=== PATIENT | male | born 1995 | race Caucasian/White ===

== ENCOUNTER 2025-03-08 07:09 | Emergency (ER) | payer MEDICAID ==
[~2025-03-08] VITALS: Ht 190.5 cm; Wt 80.3 kg
--- NOTE | 2025-03-08 07:40 | ED.PDOC ---
Back pain HPI HPI Comments A 30 YEAR OLD MALE PRESENTS TO THE ED WITH COMPLAINT OF MIDDLE BACK PAIN THAT RADIATES TO LOWER BACK. PATIENT STATES HE HAS BEEN EXPERIENCING MIDDLE BACK PAIN THAT RADIATES DOWN TO HIS LOWER BACK THAT STARTED YESTERDAY. PATIENT NOTES HE HAS A HISTORY OF SCIATICA PAIN AND CHRONIC LOWER BACK PAIN. PATIENT REPORTS HIS PAIN IS WORSE WITH MOVEMENT. PATIENT DENIES INJURY TO THE AFFECTED AREA, SADDLE ANESTHESIA, URINARY INCONTINENCE, BOWEL INCONTINENCE, DYSURIA, HEMATURIA, FLANK PAIN, FEVER, CHILLS, SHORTNESS OF BREATH, CHEST PAIN, ABDOMINAL PAIN, NAUSEA, VOMITING, HEADACHE, OR OTHER COMPLAINTS. NO OTHER SYMPTOMS OR MODIFYING FACTORS AT THIS TIME. PATIENT IS ALERT, ORIENTED X 4, AND HAS STEADY GAIT. Chief Complaint: Back Pain Time Seen by MD: 07:30 Reviewed Notes: Nurses Notes, Medications, Allergies Allergies: Coded Allergies: Amoxicillin (Verified Allergy, Unknown, 03/08/25) Home Meds Active Scripts Hydrocodone-Acetaminophen (Hydrocodone Bitartrate/AC 5-325 mg) 1 Tab Tab, 1 TAB PO TID, #15 TAB Prov:CHUN TORRES 03/08/25 Prednisone (Prednisone) 20 Mg Tab, 40 MG PO DAILY, #20 TAB Prov:CHUN TORRES 03/08/25 Information Source: Patient Mode of Arrival: Ambulatory Timing: Days Duration: Since onset, Days Location of Back pain: (B) Lower back, (B) Thoracic Radiates to: Anterior: Other (LOWER BACK) Radiates to: Posterior: (R) Buttocks, (R) Thigh, Other (LOWER BACK) Radiates to: Medial: Other (LOWER BACK) Radiates to: Lateral: (R) Buttocks, (R) Thigh, Other (LOWER BACK) Severity: Moderate Prehospital treatment: None Quality: Aching, Cramping Onset: Spontaneous History of: Chronic Back Pain Modifying Factors: Movement Associated signs and symptoms: None Past Medical History Past Medical History (Other): FOREIGN BODY OF PELVIS SCIATICA Surgical History: Denies all surgeries Family History Family History: Reviewed,noncontributory to illness Social History Smoker: Non-Smoker Alcohol: Denies ETOH Use Drugs: Denies Drug Use Lives In: Home Constitutional: denies: chills, diaphoresis, fatigue, fever, malaise, sweats, weakness, others EENTM: denies: blurred vision, double vision, ear bleeding, ear discharge, ear drainage, ear pain, ear ringing, eye pain, eye redness, hearing loss, mouth pain, mouth swelling, nasal discharge, nose bleeding, nose congestion, nose pain, photophobia, tearing, throat pain, throat swelling, voice changes, others Respiratory: denies: cough, hemoptysis, orthopnea, SOB at rest, shortness of breath, SOB with excertion, stridor, wheezing, others Cardiovascular: denies: chest pain, dizzy spells, diaphoresis, Dyspnea on exertion, edema, irregular heart beat, left arm pain, lightheadedness, palpitations, PND, syncope, others Gastrointestinal: denies: abdomen distended, abdominal pain, blood streaked bowels, constipated, diarrhea, dysphagia, difficulty swallowing, hematemesis, melena, nausea, poor appetite, poor fluid intake, rectal bleeding, rectal pain, vomiting, others Genitourinary: denies: burning, dysuria, flank pain, frequency, hematuria, incontinence, penile discharge, penile sore, pain, testicle pain, testicle swelling, urgency, others Neurological: denies: dizziness, fainting, headache, left sided numbness, left sided weakness, numbness, paresthesia, pre-existing deficit, right sided numbness, right sided weakness, seizure, speech problems, tingling, tremors, weakness, others Musculoskeletal: reports: back pain (MIDDLE BACK PAIN THAT RADIATES TO LOWER BACK), muscle pain; denies: gout, joint pain, joint swelling, muscle stiffness, neck pain, others Integumetry: denies: bruises, change in color, change in hair/nails, dryness, laceration, lesions, lumps, rash, wounds, others Allergic/Immunocompromised: denies: Difficulty Healing, Frequent Infections, Hives, Itching, others Hematologic/Lymphatic: denies: anemia, blood clots, easy bleeding, easy bruising, swollen glands, others Endocrine: denies: excessive hunger, excessive sweating, excessive thirst, excessive urination, flushing, intolerance to cold, intolerance to heat, unexplained weight gain, unexplained weight loss, others Psychiatric: denies: anxiety, bipolar disorder, depression, hopeless, panic disorder, schizophrenia, sleepless, suicidal, others All Other Systems: Reviewed and Negative Physical Exam General Appearance: No Apparent Distress, Normal HEENT: Normal ENT Inspection, PERRL/EOMI, Pharynx Normal, TMs Normal Neck: Full Range of Motion, Non-Tender, Normal, Normal Inspection Respiratory: Chest Non-Tender, Lungs Clear, No Accessory Muscle Use, No Respiratory Distress, Normal Breath Sounds Cardiovascular: No Edema, No JVD, No Murmur, No Gallop, Normal Peripheral Pulses, Regular Rate/Rhythm Breast Exam: Deferred Gastrointestinal: No Organomegaly, Non Tender, No Pulsatile Mass, Normal Bowel Sounds, Soft Genitalia: Deferred Pelvic: Deferred Rectal: Deferred Extremities: No calf tenderness, Normal capillary refill, Normal inspection, Normal range of motion, Non-tender, No pedal edema Musculoskeletal : Location: Bilateral Extremity Location: Back, Other (NO REDNESS, SWELLING AND DVT SIGNS OF RIGHT LOWER LEG. ) Apperance: Tenderness (AND MUSCLE SPASM ON MIDDLE AND LOWER BACK, NO BONY TENDERNESS, SWELLING AND DEFORMITY. ) Neurologic: Alert, reinforcing steel worker wire mesh II-XII nml as Tested, No Motor Deficits, Normal Affect, Normal Mood, No Sensory Deficits Cerebellar Function: Normal Reflexes: Normal Skin: Dry, Normal Color, Warm Peripheral Pulses: 2+ carotid (R), 2+ carotid (L) Lymphatic: No Adenopathy Was a procedure done? Was a procedure done?: No Back Pain Differential Dx Differential Diagnosis: Musculoskeletal Pain Other Differential Diagnosis DDD, SCIATICA, LUMBAR RADICULOPATHY X-Ray, Labs, Meds, VS Vital Signs Date Time Temp Pulse Resp B/P (MAP) Pulse Ox O2 Delivery O2 Flow Rate FiO2 03/08/25 07:09 97.8 120 18 151/93 95 97.8 Current Medications Medications (Trade) Dose Ordered Sig/[place] Route Start Time Stop Time Status Last Admin Ketorolac Tromethamine (Toradol Injection) 60 mg ONCE ONCE IM 03/08/25 07:45 03/08/25 07:46 DC 03/08/25 07:43 CLINICAL HISTORY: LOW BACK PAIN TO RIGHT LOWER LEG TECHNIQUE: 2 views of the lumbar spine were obtained. COMPARISON: None FINDINGS: The alignment of the lumbar spine is normal. The vertebral body heights are maintained. No acute fracture or dislocation is seen. There is mild L5-S1 disc space loss. IMPRESSION: NO ACUTE RADIOGRAPHIC ABNORMALITY OF THE LUMBAR SPINE. ATED BY: JOHN JENNINGS MD DICTATED DATE/TIME: 03/08/25813 SIGNED BY: JOHN JENNINGS MD SIGNED DATE/TIME: 03/08/25813 CC: INDICATION: PAIN, NO INJURY TECHNIQUE: 2 views of the thoracic spine were obtained. COMPARISON: None FINDINGS: There is no evidence of fracture, subluxation and/or dislocation. The alignment is anatomical. The paravertebral soft tissues were unremarkable. IMPRESSION: 1. Of the visualized spine, there is no evidence for fracture or subluxation. ATED BY: ISAAC WILD MD DICTATED DATE/TIME: 03/08/25825 SIGNED BY: ISAAC WILD MD SIGNED DATE/TIME: 03/08/25825 CC: X-Ray, Labs, Meds, VS Comment EXTERNAL MEDICAL RECORDS REVIEWED: [NONE] INDEPENDENT HISTORIANS: [NONE] SOCIAL DETERMINANTS OF HEALTH: [NONE] LABS ORDERED: NONE REVIEWED AND INTERPRETED RESULTS: NONE IMAGING ORDERED: XR T-SPINE, XR L-SPINE TREATMENTS ORDERED: TORADOL 60 MG IM PROCEDURES PERFORMED: NONE CRITICAL CARE TIME: NONE I HAVE DISCUSSED THE PATIENT WITH THE ATTENDING PHYSICIAN DR. RACHEL AND HE AGREES WITH THE PATIENT'S PLAN OF CARE AND DISPOSITION. BASED ON HISTORY OF PRESENT ILLNESS, AND PHYSICAL EXAM, PATIENT WILL BE DISCHARGED HOME. DISCUSSED PLAN FOR DISCHARGE HOME WITH RX [NORCO 5/325 MG]. MEDICATION WARNINGS GIVEN. SHARED DECISION MAKING: DISCUSSED WITH PATIENT THAT THEIR WORKUP WAS NORMAL. PATIENT INSTRUCTED TO FOLLOW UP WITH PRIMARY CARE PROVIDER IN 1-2 DAYS FOR RE- EVALUATION OF SYMPTOMS. PATIENT VERBALIZES UNDERSTANDING TO RETURN TO ED FOR NEW OR WORSENING SYMPTOMS OR IF FOLLOW UP WITH PCP CANNOT BE OBTAINED. PATIENT FEELS COMFORTABLE GOING HOME AT THIS TIME. ALL QUESTIONS ADDRESSED AT TIME OF DISCHARGE. Images Reviewed?: Images reviewed and evaluated by me Time of 1ST Reevaluation: 08:44 Reevaluation 1ST: Improved Patient Education/Counseling: Diagnosis, Treatment, Need For Follow Up Family Education/Counseling: Diagnosis, Treatment, Need For Follow Up Medical Screening: No EMC Exist At This Time SEPSIS Sepsis Screen Physician Orders Spine Thoracic 2view (03/08/25 07:35) Lumbar Spine 3 View (03/08/25 07:35) Vital Signs Date Time Temp Pulse Resp B/P (MAP) Pulse Ox O2 Delivery O2 Flow Rate FiO2 03/08/25 07:09 97.8 120 18 151/93 95 97.8 Medications Medications Dose Ordered Sig/[place] Route Start Time Stop Time Status Last Admin Dose Admin Ketorolac Tromethamine 60 mg ONCE ONCE IM 03/08/25 07:45 03/08/25 07:46 DC 03/08/25 07:43 Departure 1 Departure Time of Disposition: 08:44 Impression: Primary Impression: Strain of mid-back Qualified Codes: S29.012A - Strain of muscle and tendon of back wall of thorax, initial encounter Additional Impressions: DDD (degenerative disc disease), lumbar Qualified Codes: M51.362 - Other intervertebral disc degeneration, lumbar region with discogenic back pain and lower extremity pain Lumbar radiculopathy Acute exacerbation of chronic low back pain Disposition: HOME / SELF CARE / HOMELESS Condition: Stable Additional Instructions: FOLLOW-UP WITH PCP IN 1 TO 2 DAYS. TAKE MEDICATIONS PRESCRIBED. RETURN TO ED FOR ANY NEW OR WORSENING SYMPTOMS. e-Prescriptions Hydrocodone-Acetaminophen (Hydrocodone Bitartrate/AC 5-325 mg) 1 Tab Tab 1 TAB PO TID, #15 TAB Prov: CHUN TORRES 03/08/25 Prednisone (Prednisone) 20 Mg Tab 40 MG PO DAILY, #20 TAB Prov: CHUN TORRES 03/08/25 Discharged With: Self, Relative Critical Care Note Critical Care Time?: No Stability Stability form required: No I personally scribed for CHUN TORRES ([email or web address]) on 03/08/25 at 07:40. Electronically submitted by Sujit Arambula ([email or web address]). I personally scribed for CHUN TORRES ([email or web address]) on 03/08/25 at 08:21. Electronically submitted by Sujit Arambula ([email or web address]). I personally scribed for CHUN TORRES ([email or web address]) on 03/08/25 at 08:36. Electronically submitted by Sujit Arambula ([email or web address]). I personally scribed for CHUN TORRES ([email or web address]) on 03/08/25 at 08:42. Electronically submitted by Sujit Arambula ([email or web address]). CHUN TORRES Mar 08, 2025 07:40
[2025-03-08] MEDS: KETOROLAC TROMETH 60MG/2ML VIAL IM ONE (07:43)
--- NOTE | 2025-03-08 08:17 | DVH ---
CLINICAL HISTORY: LOW BACK PAIN TO RIGHT LOWER LEG TECHNIQUE: 2 views of the lumbar spine were obtained. COMPARISON: None FINDINGS: The alignment of the lumbar spine is normal. The vertebral body heights are maintained. No acute fracture or dislocation is seen. There is mild L5-S1 disc space loss. IMPRESSION: NO ACUTE RADIOGRAPHIC ABNORMALITY OF THE LUMBAR SPINE.
--- NOTE | 2025-03-08 08:28 | DVH ---
INDICATION: PAIN, NO INJURY TECHNIQUE: 2 views of the thoracic spine were obtained. COMPARISON: None FINDINGS: There is no evidence of fracture, subluxation and/or dislocation. The alignment is anatomical. The paravertebral soft tissues were unremarkable. IMPRESSION: 1. Of the visualized spine, there is no evidence for fracture or subluxation.
[2025-03-08] MEDS ORDERED: PRED20TA2 PO (08:42)
[2025-03-08] MEDS ORDERED: HYDR-4902 PO (08:42)
[2025-03-08 08:49] VITALS: BP 122/78; PULSE 106; RESP 17; TEMP 99.9; O2SAT 95
== END 2025-03-08 08:54 | disposition home or self-care (01) ==
LOC: ER 07:09 → EEVIPCON 07:09 → ER 08:49
DX: S29.012A Strain of muscle and tendon of back wall of thorax, initial encounter (principal); M51.16 Intervertebral disc disorders with radiculopathy, lumbar region; G89.29 Other chronic pain; Z79.899 Other long term (current) drug therapy; Z88.0 Allergy status to penicillin; Z79.891 Long term (current) use of opiate analgesic; Z79.52 Long term (current) use of systemic steroids; X58.XXXA Exposure to other specified factors, initial encounter; Y93.89 Activity, other specified; Y92.89 Other specified places as the place of occurrence of the external cause; Y99.8 Other external cause status
CPT/HCPCS: 72070; 72100; 96372; 99284; J1885

== ENCOUNTER 2025-04-10 08:53 | Inpatient (IN) | payer MEDICAID ==
[~2025-04-10] VITALS: Ht 190.5 cm; Wt 82.0 kg
[~2025-04-10 08:53] MED LIST: HYDR-4902 PO; PRED20TA2 PO
[2025-04-10] MEDS: HYDROcodone-ACET 5/325MG TAB PO ONE (09:30)
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
--- NOTE | 2025-04-10 10:02 | DVH ---
INDICATION: c spine pain TECHNIQUE: 3 views of the cervical spine were obtained. COMPARISON: None FINDINGS: The cervical spine is visualized from C1-C7. There is loss of the normal cervical lordosis which can be positional. No fractures or subluxations are identified. Alignment appears unremarkable. Prevertebral soft tissues are within normal limits. IMPRESSION: No acute fracture or subluxation
[2025-04-10 10:09] LABS: Hematocrit 46.5 % (41.0-53.0); Hemoglobin 15.8 g/dL (13.5-17.5); Mean Corpuscular Hemoglobin 30.8 pg (28.0-32.0); Mean Corpuscular Volume 90.5 fL (80.0-100.0); Nucleated Red Blood Cells % 0.2 %
[2025-04-10 10:17] LABS: Anion Gap 9 (5-15); Carbon Dioxide 30 mmol/L (20-31); Chloride 106 mmol/L (98-107); Potassium 3.6 mmol/L (3.5-5.1); Sodium 145 mmol/L (136-145)
[2025-04-10 10:18] LABS: Calcium 9.4 mg/dL (8.7-10.4)
[2025-04-10 10:23] LABS: BUN/Creatinine Ratio 6.6 (10.0-20.0)
[2025-04-10 10:33] LABS: Blood Urea Nitrogen 7 mg/dL (9-23); Glucose 109 mg/dL (74-106)
[2025-04-10 12:23] LABS: Urine Protein, UAD Negative (Negative)
[2025-04-10 12:27] LABS: Amphetamine Screen, Urine Neg (NEGATIVE); Barbiturate Scree,Urine Neg (NEGATIVE); Benzodiazephine Screen, Urine Neg (NEGATIVE); Cannabinoid Screen, Urine Neg (NEGATIVE); Cocaine Screen, Urine Neg (NEGATIVE); Opiate Scree,Urine Neg (NEGATIVE); Phencyclidine Screen, Urine Neg (NEGATIVE)
[2025-04-10] MEDS ORDERED: LIDO5DIS21 TOP (13:01)
[2025-04-10] MEDS ORDERED: NAPR-957 PO (13:01)
[2025-04-10] MEDS ORDERED: METH-1181 PO (13:01)
--- NOTE | 2025-04-10 14:08 | DVH ---
CHEST RADIOGRAPH INDICATION: R/o pathology TECHNIQUE: Single frontal view of the chest was obtained COMPARISON: None FINDINGS: Lines and Tubes: None Lungs: No focal consolidation. Pleura: No effusion. No pneumothorax. Cardiomediastinal contours: Unremarkable Bones: No acute osseous abnormality. IMPRESSION: 1. No acute cardiopulmonary disease.
[2025-04-10] MEDS ORDERED: NITROGLYCERIN 0.4 MG SL TAB SL PRN (16:30)
[2025-04-10] MEDS ORDERED: MORPHINE SULFATE INJ 2 MG/ml SYRG IV PRN (16:30)
[2025-04-10] MEDS ORDERED: ACETAMINOPHEN 325 MG TAB PO PRN (16:30)
[2025-04-10] MEDS ORDERED: DOCUSATE SOD 100 MG CAP PO PRN (16:30)
[2025-04-10] MEDS ORDERED: ONDANSETRON HCL 4 MG/2 ML VIAL IV PRN (16:30)
--- NOTE | 2025-04-10 16:33 | DVHHP2 ---
History of Present Illness Reason for Visit: Neck pain History of Present Illness Conrad Montaño is a 30-year-old male transitioning to a female, who came to the hospital for neck pain. Patient initial came in complaining of neck pain, and was found to be tachycardic. ER requesting admission for cardiac work up. 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 Patient also made statements about being fearful of a catastrophic event such as loss of blood flow to his brain if he goes home. States previous imaging shows severe degenerative changes in lower lumbar region, Imaging completed here does not show that. Patient is difficult to keep on track with the conversation. When I did my assessment, he made no mention of neck or back pain. Only spoke of his heart problems because the ER told him he was being admitted due to his tachycardia. He states he was told in 2020 and 2022 that he has valve problems, but does not know what valves. Then states he has atrial enlargement and it traveled from the right to the left. Psych: Anxiety, Depression Musculoskeletal: Other (DDD) Past Surgical History: None Smoke: No ALCOHOL: none Drugs: None Lives: with Family Domestic Violence: Neg Review of Systems Constitutional: No: Fever, Chills, Sweats, Weakness, Malaise, Other Eyes: No: Pain, Vision change, Conjunctivae inflammation, Eyelid inflammation, Other, Redness ENT: No: Ear pain, Ear discharge, Nose pain, Nose discharge, Nose congestion, Mouth pain, Mouth swelling, Throat pain, Throat swelling, Other Respiratory: No: Cough, Dry, Shortness of breath, SOB with excertion, Wheezing, Hemoptysis, Pleuritic Pain, Sputum, Wheezing, Other Cardiovascular: Palpitations; No: Chest Pain, Orthopnea, Paroxysmal Noc. Dyspnea, Edema, Lt Headedness, Other Gastrointestinal: No: Nausea, Vomiting, Abdominal Pain, Diarrhea, Constipation, Melena, Hematochezia, Other Genitourinary: No Dysuria, No Frequency, No Incontinence, No Hematuria, No Retention, No Other Musculoskeletal: neck pain, back pain; No: other, shoulder pain, arm pain, hand pain, leg pain, foot pain Skin: No: Rash, Lesions, Jaundice, Bruising, Other Neurological: No: Weakness, Numbness, Incoordination, Change in speech, Conf usion, Seizures, Other Allergies: Coded Allergies: Amoxicillin (Verified Allergy, Unknown, 03/08/25) Exam Vital Signs Vital Signs Date Time Temp Pulse Resp B/P (MAP) Pulse Ox O2 Delivery O2 Flow Rate FiO2 04/10/25 15:41 106 04/10/25 14:56 98.3 17 105/58 (74) 96 98.3 General Appearance: Alert, Oriented X3, Cooperative, No acute distress HEENT: Atraumatic, PERRLA, Mucous membr. moist/pink Respiratory: Clear to auscultation, Normal air movement Cardiovascular: Regular rate, Normal S1, Normal S2, No murmurs Abdominal: Normal bowel sounds, Soft, No tenderness Extremities: No clubbing, No cyanosis, No edema, Normal pulses, No tenderness/swelling Skin: No rashes, No breakdown, No significant lesion Neuro: Normal gait, Normal speech, Strength at 5/5 X4 ext, Normal tone Psych/Mental Status: Mental status NL, Mood NL Labs/Xrays Labs Test 04/10/25 09:51 04/10/25 09:19 Range/Units White Blood Count 5.0 4.4-10.8 10^3/uL Red Blood Count 5.14 4.5-5.90 10^6/uL Hemoglobin 15.8 13.5-17.5 g/dL Hematocrit 46.5 41.0-53.0 % Mean Corpuscular Volume 90.5 80.0-100.0 fL Mean Corpuscular Hemoglobin 30.8 28.0-32.0 pg Mean Corpuscular Hemoglobin Concent 34.0 32.0-36.0 g/dL Red Cell Distribution Width 12.9 11.8-14.3 % Platelet Count 294 140-450 10^3/uL Mean Platelet Volume 8.2 6.9-10.8 fL Neutrophils (%) (Auto) 46.4 37.0-80.0 % Lymphocytes (%) (Auto) 39.6 10.0-50.0 % Monocytes (%) (Auto) 9.8 0.0-12.0 % Eosinophils (%) (Auto) 3.2 0.0-7.0 % Basophils (%) (Auto) 1.0 0.0-2.0 % Neutrophils # (Auto) 2.3 1.6-8.6 10 ^3/uL Lymphocytes # (Auto) 2.0 0.4-5.4 10 ^3/uL Monocytes # (Auto) 0.5 0-1.3 10 ^3/uL Eosinophils # (Auto) 0.2 0-0.8 10 ^3/uL Basophils # (Auto) 0.1 0-0.2 10 ^3/uL Nucleated Red Blood Cells 0.2 % Sodium Level 145 136-145 mmol/L Potassium Level 3.6 3.5-5.1 mmol/L Chloride Level 106 98-107 mmol/L Carbon Dioxide Level 30 20-31 mmol/L Anion Gap 9 5-15 Blood Urea Nitrogen 7 L 9-23 mg/dL Creatinine 1.06 0.700-1.30 mg/dL Glomerular Filtration Rate Calc 97 >90 mL/min BUN/Creatinine Ratio 6.6 L 10.0-20.0 Serum Glucose 109 H 74-106 mg/dL Calcium Level 9.4 8.7-10.4 mg/dL Magnesium Level 2.0 1.6-2.6 mg/dL Troponin I High Sensitivity < 3 L </=54 ng/L Thyroid Stimulating Hormone (TSH) 2.00 0.55-4.78 uIU/mL Urine Color Yellow Yellow Urine Clarity Clear Clear Urine pH 6.0 5.0-9.0 Urine Specific [place] 1.018 1.001-1.035 Urine Protein Negative Negative Urine Ketones Negative Negative Urine Blood Negative Negative /uL Urine Nitrite Negative Negative Urine Bilirubin Negative Negative Urine Urobilinogen 2 H Negative mg/dL Urine Leukocyte Esterase Negative Negative /uL Urine RBC 3 0 - 3 /hpf Urine Microscopic WBC 1 0-3 /HPF Urine Squamous Epithelial Cells None seen <5 /hpf Urine Bacteria None seen None Seen /hpf Urine Glucose Normal Normal mg/dL Urine Opiates Screen Neg NEGATIVE Urine Fentanyl Screen Neg NEGATIVE Urine Barbiturates Screen Neg NEGATIVE Urine Phencyclidine Screen Neg NEGATIVE Urine Amphetamines Screen Neg NEGATIVE Urine Benzodiazepines Screen Neg NEGATIVE Urine Cocaine Screen Neg NEGATIVE Urine Cannabinoids Screen Neg NEGATIVE TECHNIQUE: 3 views of the cervical spine were obtained. FINDINGS: The cervical spine is visualized from C1-C7. There is loss of the normal cervical lordosis which can be positional. No fractures or subluxations are identified. Alignment appears unremarkable. Prevertebral soft tissues are within normal limits. IMPRESSION: No acute fracture or subluxation CHEST RADIOGRAPH FINDINGS: Lines and Tubes: None Lungs: No focal consolidation. Pleura: No effusion. No pneumothorax. Cardiomediastinal contours: Unremarkable Bones: No acute osseous abnormality. IMPRESSION: 1. No acute cardiopulmonary disease. SEPSIS Sepsis Screen Date sepsis recognized/suspect: Apr 10, 2025 Time Sepsis recognized/suspect: 09 Recent Procedure: No On Antibiotic Therapy: No Respiratory Rate >20: No Heart Rate >90: Yes Temp<36 C (96.8 F) or >38.3 C: No SBP <90 or MAP <65 mmHG: No New Acute Mental Status Change: No Is the patient on CPAP, BIPAP,: No Physician Orders Cervical Spine 3v (04/10/25 09:24) * Business Control Manager Consult (04/10/25 ) Chest Xray 1 View (04/10/25 13:36) Electrocardigram (04/10/25 13:36) Vital Signs Date Time Temp Pulse Resp B/P (MAP) Pulse Ox O2 Delivery O2 Flow Rate FiO2 04/10/25 15:41 106 04/10/25 14:56 98.3 106 17 105/58 (74) 96 98.3 04/10/25 09:31 125 16 94 04/10/25 09:31 97.7 125 16 125/80 (95) 94 97.7 04/10/25 09:07 98.1 129 18 138/115 98 98.1 Laboratory Tests Test 04/10/25 09:51 White Blood Count 5.0 10^3/uL (4.4-10.8) Medications Medications Dose Ordered Sig/[place] Route Start Time Stop Time Status Last Admin Dose Admin Acetaminophen/ Hydrocodone Bitart 1 tab ONCE ONCE PO 04/10/25 09:30 04/10/25 09:31 DC 04/10/25 09:30 1 TAB Assessment/Plan Assessment/Plan Assessment: Tachycardia, Degenerative disc disease, Anxiety, Depression, Plan: Admit to Tele, Cardiology consult, Psychiatry consult, ECHO, Lipid panel, TSH, A1c, Continuous telemetry monitoring, Home medication reconciled, Plan discussed with: Patient Date of Service: Apr 10, 2025 Billing Provider: JOSE WATT Common Visit Codes: 80579-BJSWBAL INP/OBS CARE (MOD) JOSE WATT Apr 10, 2025 16:33
--- NOTE | 2025-04-10 16:37 | ECG ---
[facility] Test Date: 2025-04-10 Test Time: 15:41:15 Pat Name: JOSLYN PARRA Department: ED Room: [address] [place] [address] A Gender: M Aviation Electrician: adelita : 1995 Requested By: RUBIO BAIG Order Number: [id number] Reading MD: Toño Stovall Measurements Intervals [place] Rate: 106 P: 78 HI: 198 QRS: 82 QRSD: 84 T: 51 QT: 316 QTc: 420 Interpretive Statements Sinus tachycardia Borderline prolonged HI interval Right atrial enlargement Electronically Signed On 04-13-2025 10:30:08 PST by Toño Stovall Please click the below link to view image of tracing.
[2025-04-10] MEDS: HYDROcodone-ACET 5/325MG TAB PO PRN (18:15)
[2025-04-10 20:47] VITALS: BP 117/79; PULSE 83; RESP 16; TEMP 97.8; O2SAT 83
[2025-04-10] MEDS ORDERED: DULO1CAP4 PO (20:59)
[2025-04-10] MEDS: SODIUM CHLOR 0.9% PF (SALINE LOCK) 10ML VIAL/SYR IV SCH (21:26)
[2025-04-11 05:00] VITALS: BP 98/71; PULSE 78; RESP 16; TEMP 97.9; O2SAT 97
[2025-04-11 05:34] LABS: Hematocrit 43.9 % (41.0-53.0); Hemoglobin 15.1 g/dL (13.5-17.5); Mean Corpuscular Hemoglobin 31.0 pg (28.0-32.0); Mean Corpuscular Volume 89.8 fL (80.0-100.0); Nucleated Red Blood Cells % 0.0 %
[2025-04-11 06:02] LABS: Alanine Aminotransferase 13 U/L (7-40); Albumin 4.2 g/dL (3.2-4.8); Alkaline Phosphatase 86 U/L (46-116); Anion Gap 8 (5-15); BUN/Creatinine Ratio 11.2 (10.0-20.0); Blood Urea Nitrogen 10 mg/dL (9-23); Calcium 9.5 mg/dL (8.7-10.4); Carbon Dioxide 30 mmol/L (20-31); Chloride 108 mmol/L (98-107); Glucose 84 mg/dL (74-106); Potassium 4.0 mmol/L (3.5-5.1); Sodium 146 mmol/L (136-145); Total Protein 6.9 g/dL (5.7-8.2)
[2025-04-11 06:03] LABS: Bilirubin, Total 0.5 mg/dL (0.2-1.0)
[2025-04-11 08:00] VITALS: PULSE 88
[2025-04-11 08:52] VITALS: BP 103/75; PULSE 88; RESP 18; TEMP 99; O2SAT 98
[2025-04-11] MEDS ORDERED: ERGOCALCIFEROL 50,000 UNIT(1.25MG) CAP PO SCH (11:15)
[2025-04-11] MEDS ORDERED: BACL10TA PO (13:54)
--- NOTE | 2025-04-11 15:29 | DVHDSRES ---
Discharge Summary Date of Admission Resident Creating Document: AINSLEY REILLY RESIDENT Apr 10, 2025 at 16:29 Date of Discharge: Apr 11, 2025 Admitting Diagnosis Intractable neck pain and tachycardia Labs/Diagnostic Data: Laboratory Results Test 04/11/25 05:02 04/10/25 09:51 04/10/25 09:19 White Blood Count 5.1 10^3/uL (4.4-10.8) Red Blood Count 4.88 10^6/uL (4.5-5.90) Hemoglobin 15.1 g/dL (13.5-17.5) Hematocrit 43.9 % (41.0-53.0) Mean Corpuscular Volume 89.8 fL (80.0-100.0) Mean Corpuscular Hemoglobin 31.0 pg (28.0-32.0) Mean Corpuscular Hemoglobin Concent 34.5 g/dL (32.0-36.0) Red Cell Distribution Width 13.3 % (11.8-14.3) Platelet Count 267 10^3/uL (140-450) Mean Platelet Volume 8.0 fL (6.9-10.8) Neutrophils (%) (Auto) 49.5 % (37.0-80.0) Lymphocytes (%) (Auto) 35.3 % (10.0-50.0) Monocytes (%) (Auto) 11.7 % (0.0-12.0) Eosinophils (%) (Auto) 2.6 % (0.0-7.0) Basophils (%) (Auto) 0.9 % (0.0-2.0) Neutrophils # (Auto) 2.5 10 ^3/uL (1.6-8.6) Lymphocytes # (Auto) 1.8 10 ^3/uL (0.4-5.4) Monocytes # (Auto) 0.6 10 ^3/uL (0-1.3) Eosinophils # (Auto) 0.1 10 ^3/uL (0-0.8) Basophils # (Auto) 0 10 ^3/uL (0-0.2) Nucleated Red Blood Cells 0.0 % Sodium Level 146 mmol/L (136-145) Potassium Level 4.0 mmol/L (3.5-5.1) Chloride Level 108 mmol/L (98-107) Carbon Dioxide Level 30 mmol/L (20-31) Anion Gap 8 (5-15) Blood Urea Nitrogen 10 mg/dL (9-23) Creatinine 0.89 mg/dL (0.700-1.30) Glomerular Filtration Rate Calc 118 mL/min (>90) BUN/Creatinine Ratio 11.2 (10.0-20.0) Serum Glucose 84 mg/dL (74-106) Hemoglobin A1c 4.9 % A1C (<5.7) Calcium Level 9.5 mg/dL (8.7-10.4) Total Bilirubin 0.5 mg/dL (0.2-1.0) Aspartate Amino Transferase (AST) 15 U/L (13-40) Alanine Aminotransferase (ALT) 13 U/L (7-40) Alkaline Phosphatase 86 U/L (46-116) Total Protein 6.9 g/dL (5.7-8.2) Albumin 4.2 g/dL (3.2-4.8) Vitamin B12 Level 396 pg/mL (211-911) Vitamin D 25-Hydroxy 27.4 ng/mL (30.0-100) Folic Acid 6.90 ng/mL (>5.38) Magnesium Level 2.0 mg/dL (1.6-2.6) Troponin I High Sensitivity < 3 ng/L (</=54) Thyroid Stimulating Hormone (TSH) 2.00 uIU/mL (0.55-4.78) Urine Color Yellow (Yellow) Urine Clarity Clear (Clear) Urine pH 6.0 (5.0-9.0) Urine Specific [place] 1.018 (1.001-1.035) Urine Protein Negative (Negative) Urine Ketones Negative (Negative) Urine Blood Negative /uL (Negative) Urine Nitrite Negative (Negative) Urine Bilirubin Negative (Negative) Urine Urobilinogen 2 mg/dL (Negative) Urine Leukocyte Esterase Negative /uL (Negative) Urine RBC 3 /hpf (0 - 3) Urine Microscopic WBC 1 /HPF (0-3) Urine Squamous Epithelial Cells None seen /hpf (<5) Urine Bacteria None seen /hpf (None Seen) Urine Glucose Normal mg/dL (Normal) Urine Opiates Screen Neg (NEGATIVE) Urine Fentanyl Screen Neg (NEGATIVE) Urine Barbiturates Screen Neg (NEGATIVE) Urine Phencyclidine Screen Neg (NEGATIVE) Urine Amphetamines Screen Neg (NEGATIVE) Urine Benzodiazepines Screen Neg (NEGATIVE) Urine Cocaine Screen Neg (NEGATIVE) Urine Cannabinoids Screen Neg (NEGATIVE) Other Laboratory Tests 04/11/25 05:02 Brief Hx & Hospital Course: Joslyn Montaño is a 30-year-old male transitioning to a female, who came to the hospital for neck pain. Patient initial came in complaining of neck pain, and was found to be tachycardic. ER requesting admission for cardiac work up. 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 Patient also made statements about being fearful of a catastrophic event such as loss of blood flow to his brain if he goes home. States previous imaging shows severe degenerative changes in lower lumbar region, Imaging completed here does not show that. Patient is difficult to keep on track with the conversation. When I did my assessment, he made no mention of neck or back pain. Only spoke of his heart problems because the ER told him he was being admitted due to his tachycardia. He states he was told in 2020 and 2022 that he has valve problems, but does not know what valves. Then states he has atrial enlargement and it traveled from the right to the left. Hospital course-during hospital course patient is was treated conservatively. Patient reported regarding her 6 trafficking she already reported with the police and there has been vegetation going on. Patient was advised to follow up with the PCP if there any device in her body on not/also talked to police regarding what med she should be taking. X-ray cervical spine no acute fracture, patient is being discharged with the baclofen b.i.d. PRN. Patient was advised to follow up at [facility] for further evaluation and care. Patient was hemodynamically stable on discharge. All questions answered. Assessment Neck pain likely due to musculoskeletal Anxiety Panic attack Delusional disorder Suspected schizoaffective disorder without AHVH with the acute psychosis Denied any SI or HI Plan Baclofen as prescribed Was advised to follow up with the PCP for further evaluation and care/police Department for consult regarding device in her body Patient was also advised to follow up at [facility] for further evaluation care of suspected schizoaffective disorder/anxiety Follow up at [facility] Operations or Procedures [address] [address] Ph: [phone] DIAGNOSTIC IMAGING Diagnostic Imaging Report : [id number] Signed PATIENT: JOSLYN MONTAÑO ACCT: [id number] UNIT: [id number] : 1995 LOC: ER ROOM / BED: / AGE / SEX: 30 / M ADM STATUS: REG ER SERVICE [id number] ORDERING PHYSICIAN: RUBIO BAIG NP PROCEDURE(s): CERV2 - CERVICAL SPINE 3V REASON: c spine pain ORDER NUMBER(s): [id number], ACCESSION NUMBER(s): [id number] INDICATION: c spine pain TECHNIQUE: 3 views of the cervical spine were obtained. COMPARISON: None FINDINGS: The cervical spine is visualized from C1-C7. There is loss of the normal cervical lordosis which can be positional. No fractures or subluxations are identified. Alignment appears unremarkable. Prevertebral soft tissues are within normal limits. IMPRESSION: No acute fracture or subluxation ATED BY: ISAAC WILD MD DICTATED DATE/TIME: 04/10/25958 SIGNED BY: ISAAC WILD MD SIGNED DATE/TIME: 04/10/25958 CC: [place] [address] Ph: [phone] DIAGNOSTIC IMAGING Diagnostic Imaging Report : [id number] Signed PATIENT: JOSLYN MONTAÑO ACCT: [id number] UNIT: [id number] : 1995 LOC: ER ROOM / BED: / AGE / SEX: 30 / M ADM STATUS: REG ER SERVICE 1336 ORDERING PHYSICIAN: RUBIO BAIG [employer]URAL STEEL IRONWORKER PROCEDURE(s): CXR1 - CHEST XRAY 1 VIEW REASON: R/o pathology ORDER NUMBER(s): [id number], ACCESSION NUMBER(s): [id number] CHEST RADIOGRAPH INDICATION: R/o pathology TECHNIQUE: Single frontal view of the chest was obtained COMPARISON: None FINDINGS: Lines and Tubes: None Lungs: No focal consolidation. Pleura: No effusion. No pneumothorax. Cardiomediastinal contours: Unremarkable Bones: No acute osseous abnormality. IMPRESSION: 1. No acute cardiopulmonary disease. ATED BY: PARMJIT NAPIER Jr., DO DICTATED DATE/TIME: 04/10/251404 SIGNED BY: PARMJIT NAPIER Jr., SIGNED DATE/TIME: 04/10/25 140 CC: Condition at Discharge: Stable Final Diagnosis/Problems List Suspected schizoaffective disorder without AHVH without acute psychosis Ruled out SI or HI Neck pain likely due to musculoskeletal Sinus tachh d/t Anxiety Panic attack Delusional disorder Vit D Def Discharge Disposition: Home Discharge Instruct/Medications Diet: Regular Activity: No Restrictions, As Tolerated Follow Up/Referral: [facility] as provide information PCP Medications: As Per EMR Scheduled Duloxetine HCl (Duloxetine HCl), 1 CAP PO BID, (Reported) Hydrocodone-Acetaminophen (Hydrocodone Bitartrate/AC 5-325 mg), 1 TAB PO TID Scheduled PRN Baclofen (Baclofen), 10 MG PO BIDPRN PRN Discharge Statement: "Patient was advised to return to the ER or call 911 if any headaches, dizziness, shortness of breath, chest pain, abdominal pain, bleeding, fevers, or worsening of medical condition. Patient was counseled about treatment plan, medications, possible side effects, patientverbalized understanding. All questions were answered to the best of my ability. This discharge took greater then 30 minutes in planning, reviewing documentation, counseling the patient, and discussing with other team members." ASSESSMENT ASSESSMENT Assessment Neck pain likely due to musculoskeletal Anxiety Panic attack Delusional disorder Suspected schizoaffective disorder without AHVH with the acute psychosis Denied any SI or HI Visit Coding STANDARD RES Billing Provider: YVES MCKAY MD Date of Service if different f: Apr 11, 2025 Common Visit Codes: 92121-AQO/OBS DISCH DAY >30min AINSLEY REILLY RESIDENT Apr 11, 2025 15:29 SHEILA JULIEN RESIDENT Apr 11, 2025 15:50
[2025-04-11] MEDS ORDERED: ERGO1CAP23 PO (15:52)
== END 2025-04-11 14:15 | disposition home or self-care (01) | DRG 351 ==
LOC: EEVIPCON 08:53 → ER 08:53 → OVERFLOW 16:29
PROVIDERS: ADMIT Student in an Organized Health Care Education/Training Program; ATTEND Student in an Organized Health Care Education/Training Program
DX: M62.838 Other muscle spasm (principal); F22 Delusional disorders; F32.A Depression, unspecified; M54.2 Cervicalgia; F25.9 Schizoaffective disorder, unspecified; F23 Brief psychotic disorder; R00.0 Tachycardia, unspecified; F41.0 Panic disorder [episodic paroxysmal anxiety]; F41.9 Anxiety disorder, unspecified; Z88.0 Allergy status to penicillin
CPT/HCPCS: 36415; 71045; 72040; 80048; 80053; 80307; 81001; 82306; 82607; 82746; 83036; 83735; 84443; 84484; 85025; 93005; G0378